=== PATIENT | female | born 1950 | race Caucasian/White ===

== ENCOUNTER 2024-03-08 12:55 | Inpatient (IN) | payer MEDICARE, MEDICAID ==
[~2024-03-08] VITALS: Ht 157.5 cm; Wt 49.9 kg
[~2024-03-08 12:55] MED LIST: AMIN30LI28 PO; AMLO-258 PO; AMLO10TA55 PO; ASPI-1450 PO; ATOR40TA28 PO; BISA10SU11 PR; HYOS-28 PO; INSU100V SQ; LORA2I PO; LOSA50TA65 PO; MEMA10TA24 PO; MULT-660 PO; ONDA-104 PO; QUET25TA PO; SENN-308 PO; [UNRECOGNIZED DRUG - CODE] PO
[2024-03-08] MEDS ORDERED: LOPERAMIDE HCL 2 MG CAPSULE PO PRN (21:00)
[2024-03-08] MEDS ORDERED: PROMETHAZINE HCL 25 MG TABLET PO PRN (21:00)
[2024-03-08] MEDS: DIVALPROEX SODIUM 500 MG ER TABLET PO SCH (21:00)
[2024-03-08] MEDS ORDERED: MAGNESIUM HYDROXIDE SUSPENSION 30 ML UDCUP PO PRN (21:00)
[2024-03-08] MEDS ORDERED: ZOLPIDEM TARTRATE 10 MG TABLET PO PRN (21:00)
[2024-03-08] MEDS ORDERED: GuaiFENesin/D-METHORPHAN [SUGAR-FREE] 200-20MG/10 ML SYRUP UDCUP PO PRN (21:00)
[2024-03-08] MEDS: MELATONIN 5 MG TABLET PO SCH (21:00)
[2024-03-08] MEDS ORDERED: BREXPIPRAZOLE 0.25 MG TABLET PO PRN (21:00)
[2024-03-08] MEDS: THIAMINE 100 MG TABLET PO SCH (21:21)
[2024-03-08] MEDS: BREXPIPRAZOLE 0.25 MG TABLET PO SCH (21:21)
[2024-03-08 23:09] VITALS: RESP 19; TEMP 98.1
[2024-03-09] MEDS ORDERED: IPRATROPIUM BROMIDE 0.5 MG/2.5 ML NEB SOLUTION NEB PRN (06:45)
[2024-03-09] MEDS ORDERED: ALBUTEROL SULFATE 2.5 MG/0.5 ML NEB SOLUTION NEB PRN (06:45)
[2024-03-09] MEDS ORDERED: ONDANSETRON 4 MG RAPDIS TABLET PO PRN (06:45)
[2024-03-09] MEDS: MetFORMIN HCL 500 MG TABLET PO SCH ×2 (07:19→16:56)
[2024-03-09 08:45] VITALS: BP 114/61; PULSE 65; RESP 18; TEMP 97.7; O2SAT 98
[2024-03-09] MEDS ORDERED: THIAMINE 100 MG TABLET PO SCH (09:00)
[2024-03-09] MEDS ORDERED: FOLIC ACID 1 MG TABLET PO SCH (09:00)
[2024-03-09] MEDS: FOLIC ACID 1 MG TABLET PO SCH (09:45)
[2024-03-09] MEDS: CIPROFLOXACIN HCL 500 MG TABLET PO SCH (09:45)
[2024-03-09] MEDS: MULTIVITAMINS WITH MINERALS, THERAPEUTIC TABLET PO SCH (09:46)
[2024-03-09] MEDS: LOSARTAN POTASSIUM 50 MG TABLET PO SCH (09:46)
[2024-03-09] MEDS: INSULIN LISPRO 100 UNITS/ML SQ PRN (11:29)
[2024-03-09 11:45] LABS: GLUCOMETER DEV NAME(LOC) 3E.I 2; GLUCOSE,POINT OF CARE 147 MG/DL (70-110)
[2024-03-09 16:55] LABS: GLUCOMETER DEV NAME(LOC) 3EX.2; GLUCOSE,POINT OF CARE 142 MG/DL (70-110)
[2024-03-09] MEDS: ZOLPIDEM TARTRATE 5 MG TABLET PO PRN (22:18)
[2024-03-09 23:45] VITALS: PULSE 91; RESP 18; TEMP 97.3; O2SAT 98
[2024-03-10] MEDS: HydrOXYzine PAMOATE 50 MG CAPSULE PO PRN (08:14)
[2024-03-10 08:52] VITALS: BP_SYST 137; BP_SYST 154; BP_DIAS 85; BP_DIAS 91; PULSE 106; PULSE 75; RESP 18; RESP 19; TEMP 96.8; TEMP 97.1; O2SAT 97
[2024-03-10 20:13] VITALS: BP 114/76; PULSE 104; RESP 18; TEMP 98.1; O2SAT 98
[2024-03-10] MEDS: BREXPIPRAZOLE 0.25 MG TABLET PO SCH (21:00)
[2024-03-11 07:45] LABS: CHOL/HDL RATIO 3.5 (3.9-5.7)
[2024-03-11 07:50] LABS: HEMOGLOBIN A1C 7.3 % (3.8-5.6)
[2024-03-11 07:54] LABS: FREE T4 (FREE THYROXINE) 0.99 ng/dL (0.76-1.46); THYROID STIMULATING HORMONE 3.36 uIU/mL (0.36-3.74)
[2024-03-11 08:02] VITALS: BP 117/81; PULSE 78; RESP 18; TEMP 97.6; O2SAT 98
[2024-03-11] MEDS: LORazepam 2 MG TABLET PO PRN (10:30)
[2024-03-11 10:56] LABS: GLUCOMETER DEV NAME(LOC) 3E.I 2; GLUCOSE,POINT OF CARE 131 MG/DL (70-110)
[2024-03-11 10:56] LABS: GLUCOMETER DEV NAME(LOC) 3E.I 2; GLUCOSE,POINT OF CARE 125 MG/DL (70-110)
[2024-03-11 10:56] LABS: GLUCOMETER DEV NAME(LOC) 3E.I 2; GLUCOSE,POINT OF CARE 189 MG/DL (70-110)
[2024-03-11 10:56] LABS: GLUCOMETER DEV NAME(LOC) 3E.I 2; GLUCOSE,POINT OF CARE 118 MG/DL (70-110)
[2024-03-11 20:04] VITALS: BP 111/79; PULSE 72; RESP 8; TEMP 97.5; O2SAT 97
[2024-03-12 09:56] LABS: GLUCOMETER DEV NAME(LOC) 3EX.2; GLUCOSE,POINT OF CARE 117 MG/DL (70-110)
[2024-03-12 09:56] LABS: GLUCOMETER DEV NAME(LOC) 3E.I 2; GLUCOSE,POINT OF CARE 90 MG/DL (70-110)
[2024-03-12 10:01] LABS: GLUCOMETER DEV NAME(LOC) 3E.I 2; GLUCOSE,POINT OF CARE 183 MG/DL (70-110)
[2024-03-12] MEDS: BREXPIPRAZOLE 1 MG TABLET PO SCH (21:00)
[2024-03-13 20:33] VITALS: RESP 18; TEMP 98.1
[2024-03-14 07:43] LABS: BASOPHILS % (AUTO) 1.1 % (0.0-2.0); EOSINOPHILS % (AUTO) 1.2 % (1.0-6.0); HEMATOCRIT 32.2 % (36-46); HEMOGLOBIN 10.8 g/dL (12.0-16.0); LYMPHOCYTES # (AUTO) 2.3 K/uL (1.0-4.8); MEAN CORPUSCULAR HEMOGLOBIN 30.2 pg (26.0-34.0); MEAN CORPUSCULAR HGB CONC 33.6 G/dL (31.0-37.0); MEAN CORPUSCULAR VOLUME 90 fL (80-100); MONOCYTES # (AUTO) 0.3 K/uL (0.1-1.0); NEUTROPHILS # (AUTO) 3.9 K/uL (1.8-7.7); NEUTROPHILS % (AUTO) 58.7 % (40.0-70.0); PLATELET COUNT (AUTO) 233 K/uL (150-450); RED BLOOD CELL COUNT(AUTO) 3.58 MIL/uL (4.00-5.20); RED CELL DISTRIBUTION WIDTH 14.5 % (11.5-14.5); WHITE BLOOD COUNT (AUTO) 6.7 K/uL (4.5-11.0)
[2024-03-14 07:57] LABS: ALBUMIN 3.2 g/dL (3.4-5.0); BILIRUBIN,TOTAL 0.2 mg/dL (0.1-1.0); CALCIUM, TOTAL 8.7 mg/dL (8.8-10.5); CREATININE 1.14 mg/dL (0.60-1.30); POTASSIUM 5.6 mmol/L (3.5-5.1); TOTAL PROTEIN, SERUM 6.4 g/dL (6.4-8.2)
[2024-03-14 12:57] VITALS: RESP 18
[2024-03-14] MEDS: LORazepam 0.5 MG TABLET PO PRN (20:38)
[2024-03-14 21:53] VITALS: RESP 18
[2024-03-14] MEDS ORDERED: VALPROIC ACID 250 MG/5 ML SOLUTION UDCUP PO SCH (22:00)
[2024-03-14] MEDS: VALPROIC ACID 250 MG/5 ML SOLUTION UDCUP PO SCH (22:20)
[2024-03-15 06:00] LABS: GLUCOMETER DEV NAME(LOC) 3EX.2; GLUCOSE,POINT OF CARE 139 MG/DL (70-110)
[2024-03-15] MEDS: ACETAMINOPHEN 325 MG TABLET PO PRN (09:30)
[2024-03-15 11:35] LABS: GLUCOMETER DEV NAME(LOC) 3EX.2; GLUCOSE,POINT OF CARE 121 MG/DL (70-110)
[2024-03-15 12:39] VITALS: RESP 18
[2024-03-15] MEDS: MAG HYDROX/ALUMINUM HYD/SIMETH ES 30 ML SUSPENSION UDCUP PO PRN (16:13)
[2024-03-15 16:36] LABS: GLUCOMETER DEV NAME(LOC) 3EX.2; GLUCOSE,POINT OF CARE 122 MG/DL (70-110)
[2024-03-15 20:31] VITALS: BP 120/57; PULSE 80; RESP 18; TEMP 98.2; O2SAT 96
[2024-03-15] MEDS: BREXPIPRAZOLE 0.25 MG TABLET PO SCH (21:26)
[2024-03-15] MEDS: VALPROIC ACID 250 MG/5 ML SOLUTION UDCUP PO SCH (21:27)
[2024-03-15 21:35] LABS: GLUCOMETER DEV NAME(LOC) 3EX.2; GLUCOSE,POINT OF CARE 106 MG/DL (70-110)
[2024-03-16 06:20] LABS: GLUCOMETER DEV NAME(LOC) 3EX.2; GLUCOSE,POINT OF CARE 98 MG/DL (70-110)
[2024-03-16 11:26] LABS: GLUCOMETER DEV NAME(LOC) 3EX.2; GLUCOSE,POINT OF CARE 98 MG/DL (70-110)
[2024-03-16 11:45] LABS: GLUCOMETER DEV NAME(LOC) 3EX.2; GLUCOSE,POINT OF CARE 95 MG/DL (70-110)
[2024-03-16 11:45] LABS: GLUCOMETER DEV NAME(LOC) 3EX.2; GLUCOSE,POINT OF CARE 129 MG/DL (70-110)
[2024-03-16 11:45] LABS: GLUCOMETER DEV NAME(LOC) 3EX.2; GLUCOSE,POINT OF CARE 177 MG/DL (70-110)
[2024-03-16 11:45] LABS: GLUCOMETER DEV NAME(LOC) 3EX.2; GLUCOSE,POINT OF CARE 103 MG/DL (70-110)
[2024-03-16 11:45] LABS: GLUCOMETER DEV NAME(LOC) 3EX.2; GLUCOSE,POINT OF CARE 138 MG/DL (70-110)
[2024-03-16 11:45] LABS: GLUCOMETER DEV NAME(LOC) 3EX.2; GLUCOSE,POINT OF CARE 193 MG/DL (70-110)
[2024-03-16 11:45] LABS: GLUCOMETER DEV NAME(LOC) 3EX.2; GLUCOSE,POINT OF CARE 108 MG/DL (70-110)
[2024-03-16 11:45] LABS: GLUCOMETER DEV NAME(LOC) 3EX.2; GLUCOSE,POINT OF CARE 130 MG/DL (70-110)
[2024-03-16 11:45] LABS: GLUCOMETER DEV NAME(LOC) 3EX.2; GLUCOSE,POINT OF CARE 188 MG/DL (70-110)
[2024-03-16 11:45] LABS: GLUCOMETER DEV NAME(LOC) 3EX.2; GLUCOSE,POINT OF CARE 195 MG/DL (70-110)
[2024-03-16 14:49] VITALS: RESP 16
[2024-03-16 17:21] LABS: GLUCOMETER DEV NAME(LOC) 3EX.2; GLUCOSE,POINT OF CARE 97 MG/DL (70-110)
[2024-03-16 21:26] VITALS: RESP 17
[2024-03-16 21:30] LABS: GLUCOMETER DEV NAME(LOC) 3EX.2; GLUCOSE,POINT OF CARE 101 MG/DL (70-110)
[2024-03-17 06:26] LABS: GLUCOMETER DEV NAME(LOC) 3EX.2; GLUCOSE,POINT OF CARE 91 MG/DL (70-110)
[2024-03-17 09:42] VITALS: RESP 16
[2024-03-17 17:01] LABS: GLUCOMETER DEV NAME(LOC) 3EX.2; GLUCOSE,POINT OF CARE 139 MG/DL (70-110)
[2024-03-17 20:44] VITALS: BP 141/53; PULSE 65; RESP 18; TEMP 97.8; O2SAT 99
[2024-03-17] MEDS: BREXPIPRAZOLE 2 MG TABLET PO SCH (21:00)
[2024-03-18 06:21] LABS: GLUCOMETER DEV NAME(LOC) 3EX.2; GLUCOSE,POINT OF CARE 155 MG/DL (70-110)
[2024-03-18 08:54] VITALS: RESP 19; TEMP 98
[2024-03-18 11:51] LABS: GLUCOMETER DEV NAME(LOC) 3EX.2; GLUCOSE,POINT OF CARE 106 MG/DL (70-110)
[2024-03-18 16:50] LABS: GLUCOMETER DEV NAME(LOC) 3EX.2; GLUCOSE,POINT OF CARE 128 MG/DL (70-110)
[2024-03-18 20:16] LABS: GLUCOMETER DEV NAME(LOC) 3EX.2; GLUCOSE,POINT OF CARE 113 MG/DL (70-110)
[2024-03-18 21:18] VITALS: RESP 18
[2024-03-18] MEDS ORDERED: VALP250S23 PO (22:39)
[2024-03-18] MEDS ORDERED: MELA5TAB40 PO (22:39)
[2024-03-18] MEDS ORDERED: BREX2TAB PO (22:39)
[2024-03-19 05:50] LABS: GLUCOMETER DEV NAME(LOC) 3E.I 2; GLUCOSE,POINT OF CARE 117 MG/DL (70-110)
[2024-03-19 08:30] VITALS: RESP 18
[2024-03-19] MEDS ORDERED: LOSA-382 PO (10:24)
[2024-03-19] MEDS ORDERED: METF-1211 PO (10:25)
[2024-03-19 16:45] LABS: GLUCOMETER DEV NAME(LOC) 3EX.2; GLUCOSE,POINT OF CARE 134 MG/DL (70-110)
== END 2024-03-19 17:00 | DRG 885 ==
LOC: 3EX 20:47
PROVIDERS: ADMIT Psychiatry & Neurology Psychiatry; ATTEND Psychiatry & Neurology Psychiatry
PROC: GZHZZZZ Group Psychotherapy (ICD-10-PCS; principal; 2024-03-08)
PROC: GZ51ZZZ Individual Psychotherapy, Behavioral (ICD-10-PCS; 2024-03-08)
PROC: GZ58ZZZ Individual Psychotherapy, Cognitive-Behavioral (ICD-10-PCS; 2024-03-08)
PROC: GZ56ZZZ Individual Psychotherapy, Supportive (ICD-10-PCS; 2024-03-09)
DX: F25.0 Schizoaffective disorder, bipolar type (principal); F17.200 Nicotine dependence, unspecified, uncomplicated; I10 Essential (primary) hypertension; E78.00 Pure hypercholesterolemia, unspecified; E11.9 Type 2 diabetes mellitus without complications; K21.9 Gastro-esophageal reflux disease without esophagitis; F41.9 Anxiety disorder, unspecified; Z74.01 Bed confinement status; Z79.82 Long term (current) use of aspirin; Z79.899 Other long term (current) drug therapy; Z87.440 Personal history of urinary (tract) infections; Z79.4 Long term (current) use of insulin
CPT/HCPCS: 80053; 80061; 80164; 82962; 83036; 84132; 84439; 84443; 85025; 86592; 87481; G0378